=== PATIENT | female | born 1940 | race Caucasian/White ===

== ENCOUNTER 2016-05-24 10:21 | Emergency (ER) | payer OTHER ==
[~2016-05-24] VITALS: Ht 160 cm; Wt 78.2 kg
[~2016-05-24 10:21] MED LIST: ADULT LOW DOSE81 M1 PO; ADVAIR 250/501 DISK IH; ADVAIR 500/501 DISK IH; AMOX TR-K CLV1 EAC4 PO; ASPIRIN81 M2 PO; ASTELIN137 MCG/0. BOTH NARES; ATROVENT 00.5 MG/2.5 IH; AZELASTINE137 MCG/0. BOTH NARES; AZITHROMYCIN250 MG1 PO; AZITHROMYCIN500 M1 PO; Advair 250/50 Diskus IH; Advair HFA 115/21 IH; BENZONATATE200 MG PO; CARDIZEM CD120 M1 PO; CELEBREX200 MG PO; CIPRO500 MG PO; Calcium Carbonate/Vi PO; Ceftin PO; Combivent IH; Coumadin,Jantoven PO; DALIRESP500 MCG PO; DELTASONE10 MG PO; DUONEB 2.5-0.5 M3 ML AEROSOL; DUONEB 2.5-0.5 M3 ML IH; DUONEB3 ML IH; ENDOCET 5-3251 EACH PO; Ecotrin PO; FUROSEMIDE40 MG PO; HUMIBID LA,MUC600 MG PO; HYDROCODON-ACE1 EAC7 PO; Humibid LA,Mucinex PO; KLONOPIN0.5 M1 PO; LEVAQUIN500 MG PO; LEVAQUIN750 MG PO; LIDOCAINE700 MG TD; Levaquin PO; MORPHINE SULFAT15 M1 PO; MUCINEX600 MG PO; NAPROSYN375 MG PO; NEURONTIN300 MG PO; NEXIUM20 MG PO; NEXIUM40 MG PO; NICODERM CQ1 EAC1 TD; NICOTINE PATCH1 EAC1 TD; Norvasc PO; OXYCODONE HCL10 MG PO; OXYCODONE-APAP1 EAC6 PO; OXYCODONE-APAP1 EACH PO; OXYMORPHONE HCL5 M1 PO; PANTOPRAZOLE SO40 MG PO; PERCOCET 10/1 TABLET PO; PERCOCET 7.51 TABLET PO; POLYETHYLENE GL17 GM PO; PREDISONE PO; PREDNISONE10 MG PO; PREDNISONE20 MG PO; PREDNISONE50 MG PO; PROAIR HFA8.5 GM IH; PROVENTIL,2.5 MG/3 M IH; Roxicet,Percocet 5/3 PO; SENOKOT S,PE1 TABLET PO; SPIRIVA1 INHALATI IH; Senokot S,Pericolace PO; TIZANIDINE HCL4 M1 PO; Tessalon Perle PO; Vicodin,Norco 5/325 PO; WARFARIN SODIUM3 MG PO; ZITHROMAX250 MG PO; ZOFRAN ODT4 MG PO; predniSONE PO
[2016-05-24 11:44] LABS: HEMATOCRIT 38.6 % (36.0-46.0); MCH 30.5 PG (29.0-34.0); MCHC 32.6 G/DL (30.0-36.0); MCV 93.5 FL (83-99); MEAN PLAT.VOLUME 10.2 uM^3 (9.5-12.4); PLATELET COUNT 319 K/uL (156-360); RBC DIS.WIDTH-CV 15.2 % (11.8-14.6); RBC DIS.WIDTH-SD 51.5 % (39-53); RED BLOOD COUNT 4.13 M/uL (3.80-5.20); WHITE BLOOD COUNT 9.1 K/uL (4.1-10.2)
[2016-05-24 11:45] LABS: CHLORIDE 102 mEq/L (99-109); SODIUM 138 mEq/L (136-147)
[2016-05-24 11:47] LABS: GLUCOSE 104 mg/dL (70-99)
[2016-05-24 11:48] LABS: ANION GAP 11 MEQ/L (2-14)
[2016-05-24 11:51] LABS: GFR ESTIMATE (CALCULATED) > 59 mL/min/
[2016-05-24 11:52] LABS: UREA NITROGEN (BUN) 12 mg/dL (9-23)
[2016-05-24] MEDS ORDERED: IBANDRONATE SO150 MG PO (12:52)
[2016-05-24] MEDS ORDERED: METHIMAZOLE5 MG PO (12:53)
[2016-05-24] MEDS ORDERED: PREDNISONE50 MG PO (15:08)
[2016-05-24] MEDS ORDERED: ZITHROMAX500 MG PO (15:08)
[2016-05-24 15:52] VITALS: BP 148/56
== END 2016-05-24 15:52 | disposition home or self-care (01) ==
LOC: EME 10:21
DX: J44.0 Chronic obstructive pulmonary disease with (acute) lower respiratory infection (principal); J44.1 Chronic obstructive pulmonary disease with (acute) exacerbation; J20.9 Acute bronchitis, unspecified; F17.200 Nicotine dependence, unspecified, uncomplicated; E78.5 Hyperlipidemia, unspecified; I10 Essential (primary) hypertension; Z88.7 Allergy status to serum and vaccine
CPT/HCPCS: 71020; 80048; 85027; 94640; 99281; 99284; J7512

== ENCOUNTER 2016-09-25 10:46 | Inpatient (IN) | payer OTHER ==
[~2016-09-25] VITALS: Ht 160 cm; Wt 81.5 kg
[~2016-09-25 10:46] MED LIST changes: +DELTASONE20 M1 PO; +DOXYCYCLINE HY100 MG PO; +IBANDRONATE SO150 MG PO; +METHIMAZOLE5 MG PO; +ZITHROMAX500 MG PO
[2016-09-25 11:28] LABS: BASOPHIL COUNT 0.1 K/uL (0-0.1); EOSINOPHIL (%) 1.8 % (0-5); EOSINOPHIL COUNT 0.2 K/uL (0-0.3); HEMATOCRIT 38.4 % (36.0-46.0); IMMATURE GRANULOCYTE (%) 1.7 % (0.0-0.7); IMMATURE GRANULOCYTE COUNT 0.2 K/uL; LYMPHOCYTE COUNT 2.8 K/uL (1.0-2.8); MCH 30.9 PG (29.0-34.0); MCHC 32.6 G/DL (30.0-36.0); MEAN PLAT.VOLUME 9.2 uM^3 (9.5-12.4); MONOCYTE COUNT 1.2 K/uL (0-0.8); NEUTROPHIL (%) 53.5 % (45-76); PLATELET COUNT 297 K/uL (156-360); RBC DIS.WIDTH-CV 14.4 % (11.8-14.6); RBC DIS.WIDTH-SD 50.4 % (39-53); RED BLOOD COUNT 4.04 M/uL (3.80-5.20); WHITE BLOOD COUNT 9.3 K/uL (4.1-10.2)
[2016-09-25 11:37] LABS: CHLORIDE 106 mEq/L (99-109); POTASSIUM 4.1 mEq/L (3.7-5.4); SODIUM 141 mEq/L (136-147)
[2016-09-25 11:39] LABS: GLUCOSE 107 mg/dL (70-99)
[2016-09-25 11:40] LABS: ANION GAP 10 MEQ/L (2-14)
[2016-09-25 11:41] LABS: TOTAL BILIRUBIN 0.4 mg/dL (0.0-1.0)
[2016-09-25 11:43] LABS: ALKALINE PHOSPHATASE 47 IU/L (3-129); GFR ESTIMATE (CALCULATED) > 59 mL/min/
[2016-09-25 11:44] LABS: UREA NITROGEN (BUN) 14 mg/dL (9-23)
[2016-09-25 11:50] LABS: TROP-I INTERPRETATION NEGATIVE; TROPONIN-I < 0.01 ng/mL (0.0-0.30)
[2016-09-25] MEDS ORDERED: HUMULIN R500 UNITS/ SC (12:55)
[2016-09-25] MEDS ORDERED: OXYCODONE-APAP1 EAC6 PO (13:37)
[2016-09-25] MEDS ORDERED: ESOMEPRAZOLE MA40 MG PO (13:38)
[2016-09-25] MEDS ORDERED: PREDNISONE10 MG PO (13:39)
[2016-09-25] MEDS ORDERED: AZITHROMYCIN250 MG1 PO (13:43)
[2016-09-25] MEDS ORDERED: LASIX40 MG PO (13:43)
[2016-09-25] MEDS ORDERED: MONTELUKAST SOD10 MG PO (13:44)
[2016-09-25] MEDS ORDERED: ADVAIR 250/501 DISK IH (13:45)
[2016-09-25] MEDS ORDERED: AZELASTINE137 MCG/0. BOTH NARES (13:46)
[2016-09-25] MEDS ORDERED: XOLAIR150 MG SC (13:47)
[2016-09-25] MEDS ORDERED: NICODERM CQ1 EACH TD (13:48)
[2016-09-25 17:20] VITALS: BP 141/75
[2016-09-25 19:33] VITALS: BP 175/73
[2016-09-25 23:41] VITALS: BP 185/78
[2016-09-26 03:45] VITALS: BP 152/80
[2016-09-26 03:46] VITALS: BP 162/68
[2016-09-26 07:18] LABS: HEMATOCRIT 37.4 % (36.0-46.0); MCH 31.9 PG (29.0-34.0); MCHC 33.7 G/DL (30.0-36.0); MCV 94.7 FL (83-99); MEAN PLAT.VOLUME 9.7 uM^3 (9.5-12.4); PLATELET COUNT 318 K/uL (156-360); RBC DIS.WIDTH-CV 14.1 % (11.8-14.6); RBC DIS.WIDTH-SD 49.2 % (39-53); RED BLOOD COUNT 3.95 M/uL (3.80-5.20)
[2016-09-26 07:34] LABS: ANION GAP 9 MEQ/L (2-14); CHLORIDE 102 MEQ/L (99-109); GFR ESTIMATE (CALCULATED) > 59 mL/min/; GLUCOSE 154 mg/dL (70-99); POTASSIUM 4.7 MEQ/L (3.7-5.4); SAMPLE HEMOLYSIS CHECK 0; SAMPLE ICTERIC CHECK 0; SAMPLE LIPEMIA CHECK 0; SODIUM 136 MEQ/L (136-147); UREA NITROGEN (BUN) 17 mg/dL (9-23)
[2016-09-26 08:15] VITALS: BP 154/71
[2016-09-26 11:40] VITALS: BP 141/67
[2016-09-26 19:32] VITALS: BP 162/64
[2016-09-26 23:18] VITALS: BP 165/71
[2016-09-27 03:29] VITALS: BP 138/85
[2016-09-27] MEDS ORDERED: MEDROL DOSEPAK4 MG PO (07:34)
[2016-09-27 08:00] VITALS: BP 142/69; BP 171/73
[2016-09-27 08:00] LABS: MCH 30.7 PG (29.0-34.0); MCHC 32.6 G/DL (30.0-36.0); MCV 94.2 FL (83-99); MEAN PLAT.VOLUME 9.9 uM^3 (9.5-12.4); PLATELET COUNT 344 K/uL (156-360); RBC DIS.WIDTH-CV 14.4 % (11.8-14.6); RBC DIS.WIDTH-SD 49.8 % (39-53); RED BLOOD COUNT 4.14 M/uL (3.80-5.20)
[2016-09-27 08:03] LABS: WHITE BLOOD COUNT 24.2 K/uL (4.1-10.2)
== END 2016-09-27 11:07 | disposition home or self-care (01) | DRG 191 ==
LOC: EME 10:46 → 2EAST 13:44 → EDOF 13:44 → 2EAST 17:00
PROVIDERS: Emergency Medicine; Internal Medicine
DX: J44.1 Chronic obstructive pulmonary disease with (acute) exacerbation (principal); J20.9 Acute bronchitis, unspecified; J44.0 Chronic obstructive pulmonary disease with (acute) lower respiratory infection; J96.11 Chronic respiratory failure with hypoxia; J45.909 Unspecified asthma, uncomplicated; I10 Essential (primary) hypertension; E78.5 Hyperlipidemia, unspecified; K21.9 Gastro-esophageal reflux disease without esophagitis; F32.9 Major depressive disorder, single episode, unspecified; G89.4 Chronic pain syndrome; M79.7 Fibromyalgia; F17.210 Nicotine dependence, cigarettes, uncomplicated; Z96.611 Presence of right artificial shoulder joint; E66.8 Other obesity; Z68.31 Body mass index [BMI] 31.0-31.9, adult; Z98.1 Arthrodesis status; Z99.81 Dependence on supplemental oxygen; Z79.52 Long term (current) use of systemic steroids
CPT/HCPCS: 71010; 80048; 80053; 83880; 84484; 85025; 85027; 93005; 94640; 94640 76; 94799; 99202; 99281; 99285; J1650; J2920; J2930; J7512

== ENCOUNTER 2016-11-16 23:06 | Inpatient (IN) | payer OTHER ==
[~2016-11-16] VITALS: Ht 160 cm; Wt 86.5 kg
[~2016-11-16 23:06] MED LIST changes: +ESOMEPRAZOLE MA40 MG PO; +HUMULIN R500 UNITS/ SC; +LASIX40 MG PO; +MEDROL DOSEPAK4 MG PO; +MONTELUKAST SOD10 MG PO; +NICODERM CQ1 EACH TD; +XOLAIR150 MG SC
[2016-11-16 23:33] LABS: HEMATOCRIT 39.5 % (36.0-46.0); MCH 31.2 PG (29.0-34.0); MCHC 32.9 G/DL (30.0-36.0); MCV 94.7 FL (83-99); MEAN PLAT.VOLUME 9.2 uM^3 (9.5-12.4); PLATELET COUNT 308 K/uL (156-360); RBC DIS.WIDTH-SD 48.3 % (39-53); RED BLOOD COUNT 4.17 M/uL (3.80-5.20); WHITE BLOOD COUNT 15.4 K/uL (4.1-10.2)
[2016-11-16 23:36] LABS: CARBON DIOXIDE (BICARBONATE) 29.5 MEQ/L (20-31)
[2016-11-16 23:40] LABS: CHLORIDE 104 mEq/L (99-109); POTASSIUM 4.7 mEq/L (3.7-5.4); SODIUM 141 mEq/L (136-147)
[2016-11-16 23:41] LABS: GLUCOSE 124 mg/dL (70-99)
[2016-11-16 23:43] LABS: ANION GAP 13 MEQ/L (2-14)
[2016-11-16 23:45] LABS: GFR ESTIMATE (CALCULATED) > 59 mL/min/
[2016-11-16 23:46] LABS: UREA NITROGEN (BUN) 14 mg/dL (9-23)
[2016-11-16 23:51] LABS: TROP-I INTERPRETATION NEGATIVE; TROPONIN-I < 0.01 ng/mL (0.0-0.30)
[2016-11-17 02:44] LABS: BASE EXCESS -0.4 mEq/L (-3 to +3); BICARBONATE 24.1 mEq/L (22-26); CARBOXY HGB 0.6 % (0-5); COMMENTS - BLOOD GASES A+C+; DEVICE HHFNC; FI02 80 %; METHEMOGLOBIN 0.8 % (0-1.5); O2 FLOW 30 L/MIN; PCO2 38 mm Hg (35-45); PO2 232 mm Hg (80-100); SITE RR; TOTAL RESP RATE 22 resp/min; pH 7.41 (7.35-7.45)
[2016-11-17] MEDS ORDERED: MONTELUKAST SOD10 MG PO (04:18)
[2016-11-17 05:56] VITALS: BP 142/79
[2016-11-17 06:03] LABS: HEMATOCRIT 38.1 % (36.0-46.0); MCHC 33.1 G/DL (30.0-36.0); MCV 96.7 FL (83-99); MEAN PLAT.VOLUME 9.5 uM^3 (9.5-12.4); PLATELET COUNT 284 K/uL (156-360); RBC DIS.WIDTH-SD 49.4 % (39-53); RED BLOOD COUNT 3.94 M/uL (3.80-5.20)
[2016-11-17 06:21] LABS: ANION GAP 7 MEQ/L (2-14); CHLORIDE 103 MEQ/L (99-109); GFR ESTIMATE (CALCULATED) > 59 mL/min/; GLUCOSE 143 mg/dL (70-99); SAMPLE HEMOLYSIS CHECK 0; SAMPLE ICTERIC CHECK 0; SAMPLE LIPEMIA CHECK 0; SODIUM 137 MEQ/L (136-147); UREA NITROGEN (BUN) 12 mg/dL (9-23)
[2016-11-17 08:00] VITALS: BP 165/76
[2016-11-17 11:45] VITALS: BP 149/72
[2016-11-17 16:15] VITALS: BP 145/76
[2016-11-17 19:58] VITALS: BP 187/70
[2016-11-17 23:04] VITALS: BP 168/82
[2016-11-18 03:38] VITALS: BP 184/74
[2016-11-18 07:53] VITALS: BP 156/72
[2016-11-18] MEDS ORDERED: AZITHROMYCIN500 M1 PO (08:04)
[2016-11-18] MEDS ORDERED: PREDNISONE10 MG PO (08:05)
[2016-11-18 11:53] VITALS: BP 153/65
== END 2016-11-18 12:10 | disposition home or self-care (01) | DRG 189 ==
LOC: EME → EDBD 23:06 → 4EAST 11-17 02:27 → EDOF 11-17 02:27 → 4EAST 11-17 04:38
PROVIDERS: Emergency Medicine; Hospitalist
DX: J96.01 Acute respiratory failure with hypoxia (principal); J44.0 Chronic obstructive pulmonary disease with (acute) lower respiratory infection; J20.9 Acute bronchitis, unspecified; J44.1 Chronic obstructive pulmonary disease with (acute) exacerbation; I10 Essential (primary) hypertension; F17.200 Nicotine dependence, unspecified, uncomplicated; Z99.81 Dependence on supplemental oxygen; E78.5 Hyperlipidemia, unspecified; K21.0 Gastro-esophageal reflux disease with esophagitis; R91.8 Other nonspecific abnormal finding of lung field; M79.7 Fibromyalgia; K44.9 Diaphragmatic hernia without obstruction or gangrene; F32.9 Major depressive disorder, single episode, unspecified; Z68.33 Body mass index [BMI] 33.0-33.9, adult; Z98.1 Arthrodesis status; Z90.49 Acquired absence of other specified parts of digestive tract; Z86.718 Personal history of other venous thrombosis and embolism; Z96.611 Presence of right artificial shoulder joint; Z90.710 Acquired absence of both cervix and uterus; Z82.3 Family history of stroke
CPT/HCPCS: 36600; 71010; 71275; 80048; 82803; 83605; 83880; 84484; 85027; 87040; 87070; 87205; 93005; 93970; 94002; 94640; 94640 76; 94760; 94799; 99202; 99281; 99285; J1100; J1644; J1956; J2930; J7040; J7644

== ENCOUNTER 2016-12-31 08:35 | Emergency (ER) | payer OTHER ==
[~2016-12-31] VITALS: Ht 160 cm; Wt 82.1 kg
[2016-12-31 10:19] LABS: HEMATOCRIT 38.2 % (36.0-46.0); MCH 30.6 PG (29.0-34.0); MCHC 32.7 G/DL (30.0-36.0); MCV 93.6 FL (83-99); MEAN PLAT.VOLUME 9.4 uM^3 (9.5-12.4); PLATELET COUNT 293 K/uL (156-360); RBC DIS.WIDTH-CV 13.1 % (11.8-14.6); RBC DIS.WIDTH-SD 45.2 % (39-53); RED BLOOD COUNT 4.08 M/uL (3.80-5.20); WHITE BLOOD COUNT 8.3 K/uL (4.1-10.2)
[2016-12-31 10:30] LABS: CHLORIDE 102 mEq/L (99-109); POTASSIUM 4.4 mEq/L (3.7-5.4); SODIUM 138 mEq/L (136-147)
[2016-12-31 10:32] LABS: GLUCOSE 113 mg/dL (70-99)
[2016-12-31 10:33] LABS: ANION GAP 9 MEQ/L (2-14)
[2016-12-31 10:34] LABS: TOTAL BILIRUBIN 0.5 mg/dL (0.0-1.0)
[2016-12-31 10:35] LABS: ALKALINE PHOSPHATASE 76 IU/L (3-129)
[2016-12-31 10:36] LABS: GFR ESTIMATE (CALCULATED) > 59 mL/min/
[2016-12-31 10:37] LABS: UREA NITROGEN (BUN) 14 mg/dL (9-23)
[2016-12-31 11:36] LABS: ADD MIUA? YES; BILIRUBIN NEGATIVE; BLOOD SMALL; COLOR YELLOW ((YELLOW)); GLUCOSE (STRIP) NEGATIVE; KETONES NEGATIVE; LEUKOCYTES TRACE; NITRITE NEGATIVE; PROTEIN (STRIP) NEGATIVE; SPECIFIC GRAVITY 1.014 (1.000-1.030)
[2016-12-31 11:38] LABS: BACTERIA NONE SEEN /HPF; EPITHELIAL CELLS 1+ /HPF; MUCUS TRACE /LPF; RED BLOOD CELLS 0-5 /HPF (0-5); UCUL ADDED? NO; WHITE BLOOD CELLS 0-5 /HPF (0-5)
[2016-12-31] MEDS ORDERED: BACTRIM,SEPT1 TABLET PO (11:48)
[2016-12-31] MEDS ORDERED: FLEXERIL10 MG PO (11:50)
[2016-12-31 12:26] VITALS: BP 146/54
== END 2016-12-31 12:27 | disposition home or self-care (01) ==
LOC: EME 08:35
PROVIDERS: Nurse Practitioner Family
DX: R10.9 Unspecified abdominal pain (principal); R31.9 Hematuria, unspecified; Z88.7 Allergy status to serum and vaccine
CPT/HCPCS: 74176; 80053; 81003; 85027; 99281; 99285; J1885; J2405; J3010

== ENCOUNTER 2017-01-23 12:45 | Emergency (ER) | payer OTHER ==
[~2017-01-23] VITALS: Ht 160 cm; Wt 82.2 kg
[~2017-01-23 12:45] MED LIST changes: +BACTRIM,SEPT1 TABLET PO; +FLEXERIL10 MG PO
[2017-01-23] MEDS ORDERED: SKELAXIN800 MG PO (17:35)
[2017-01-23 18:02] VITALS: BP 172/90
== END 2017-01-23 18:03 | disposition home or self-care (01) ==
LOC: EME 12:45
DX: S22.088A Other fracture of T11-T12 vertebra, initial encounter for closed fracture (principal); S32.038A Other fracture of third lumbar vertebra, initial encounter for closed fracture; X50.9XXA Other and unspecified overexertion or strenuous movements or postures, initial encounter; Y93.H2 Activity, gardening and landscaping; G89.29 Other chronic pain; M48.06 Spinal stenosis, lumbar region; I10 Essential (primary) hypertension; J44.9 Chronic obstructive pulmonary disease, unspecified; E78.5 Hyperlipidemia, unspecified; K21.9 Gastro-esophageal reflux disease without esophagitis; F41.9 Anxiety disorder, unspecified; M79.7 Fibromyalgia; Z86.718 Personal history of other venous thrombosis and embolism; Z87.891 Personal history of nicotine dependence; Z98.1 Arthrodesis status; Z79.891 Long term (current) use of opiate analgesic; Z79.52 Long term (current) use of systemic steroids
CPT/HCPCS: 99281; 99284; J2270; J3010; J7030

== ENCOUNTER 2017-06-13 08:28 | Emergency (ER) | payer OTHER ==
[~2017-06-13] VITALS: Ht 160 cm; Wt 76.3 kg
[~2017-06-13 08:28] MED LIST changes: +CALICUM 500+D1 EACH PO; +GABAPENTIN100 MG PO; +PREDNISONE5 MG PO; +SKELAXIN800 MG PO; +VITAMIN D
[2017-06-13 09:39] LABS: BASOPHIL (%) 0.5 % (0-1); EOSINOPHIL (%) 2.8 % (0-5); EOSINOPHIL COUNT 0.2 K/uL (0-0.3); HEMATOCRIT 37.5 % (36.0-46.0); HEMOGLOBIN 12.3 G/DL (11.9-15.5); IMMATURE GRANULOCYTE (%) 0.6 % (0.0-0.7); LYMPHOCYTE COUNT 1.5 K/uL (1.0-2.8); MCH 30.8 PG (29.0-34.0); MCHC 32.8 G/DL (30.0-36.0); MCV 93.8 FL (83-99); MONOCYTE (%) 12.3 % (3-12); MONOCYTE COUNT 0.8 K/uL (0-0.8); NEUTROPHIL (%) 59.8 % (45-76); NEUTROPHIL COUNT 3.8 K/uL (1.8-6.4); PLATELET COUNT 301 K/uL (156-360); RBC DIS.WIDTH-CV 13.3 % (11.8-14.6); RBC DIS.WIDTH-SD 46.2 % (39-53); WHITE BLOOD COUNT 6.3 K/uL (4.1-10.2)
[2017-06-13 09:49] LABS: CHLORIDE 105 mEq/L (99-109); POTASSIUM 4.2 mEq/L (3.7-5.4); SODIUM 138 mEq/L (136-147)
[2017-06-13 09:51] LABS: GLUCOSE 94 mg/dL (70-99)
[2017-06-13 09:55] LABS: CREATININE 0.7 mg/dL (0.6-1.3); GFR ESTIMATE (CALCULATED) > 59 mL/min/
[2017-06-13 09:56] LABS: UREA NITROGEN (BUN) 12 mg/dL (9-23)
[2017-06-13] MEDS ORDERED: ZITHROMAX Z-PA250 MG PO (10:56)
[2017-06-13 11:11] VITALS: BP 153/65
== END 2017-06-13 11:22 | disposition home or self-care (01) ==
LOC: EME 08:28
PROVIDERS: Emergency Medicine
DX: J32.9 Chronic sinusitis, unspecified (principal); S00.03XA Contusion of scalp, initial encounter; S40.011A Contusion of right shoulder, initial encounter; W01.198A Fall on same level from slipping, tripping and stumbling with subsequent striking against other object, initial encounter; M85.811 Other specified disorders of bone density and structure, right shoulder; J44.9 Chronic obstructive pulmonary disease, unspecified; I10 Essential (primary) hypertension; Z86.718 Personal history of other venous thrombosis and embolism; Z79.52 Long term (current) use of systemic steroids; Z87.891 Personal history of nicotine dependence
CPT/HCPCS: 70450; 73030; 80048; 85025; 93005; 99281; 99284